=== PATIENT | female | born 1960 | race American Indian/Alaskan Native ===

== ENCOUNTER 2018-01-01 14:53 | Inpatient (IN) | payer MEDICAID ==
[2018-01-01 15:12] VITALS: BMI 21.9
[2018-01-01 17:04] LABS: EOS # 0.1 K/uL (0.0-0.7); EOS % 2.3 % (0.0-4.0); HEMOGLOBIN 13.4 g/dL (11.0-16.0); LYMPH # 2.4 K/uL (1.0-4.3); MEAN CELL VOLUME 91.6 fL (81.0-99.0); MEAN CORPUSCULAR HEMOGLOBIN 30.7 pg (27.0-31.0); MEAN CORPUSCULAR HGB CONC 33.5 g/dL (33.0-37.0); MEAN PLATELET VOLUME 8.5 fL (7.2-11.7); MONO # 0.3 K/uL (0.0-0.8); MONO % 6.6 % (0.0-10.0); NEUT # 1.1 K/uL (1.8-7.0); NEUT % 28.1 % (50.0-75.0); NRBC % 0.2 % (0.0-2.0); RBC 4.35 Mil/uL (3.80-5.20); RED CELL DISTRIBUTION WIDTH 12.6 % (11.5-14.5); WHITE BLOOD COUNT 3.9 K/uL (4.8-10.8)
[2018-01-01 17:16] LABS: URINE BACTERIA RARE (<OCC); URINE BILIRUBIN NEGATIVE (NEGATIVE); URINE BLOOD 1+ (NEGATIVE); URINE CLARITY Clear (Clear); URINE COLOR Yellow (YELLOW); URINE GLUCOSE (UA) NORMAL (Normal); URINE LEUKOCYTE ESTERASE NEG Leu/uL (Negative); URINE PROTEIN NEGATIVE (NEGATIVE); URINE UROBILINOGEN NORMAL mg/dL (0.2-1.0)
[2018-01-01 17:17] LABS: ALB/GLOB RATIO 1.5 (1.0-2.1); ALBUMIN 4.3 g/dL (3.5-5.0); ALT/SGPT 24 U/L (9-52); AST/SGOT 27 U/L (14-36); BLOOD UREA NITROGEN 14 mg/dL (7-17); CALCIUM 9.6 mg/dl (8.6-10.4); GFR NON-AFRICAN AMERICAN > 60
[2018-01-01 17:19] LABS: BARBITURATES, UR NEGATIVE (NEGATIVE); BENZODIAZEPINES, UR NEGATIVE (NEGATIVE); PHENCYCLIDINE, UR NEGATIVE (NEGATIVE)
[2018-01-01 17:21] LABS: OPIATES, UR POSITIVE (NEGATIVE)
--- NOTE | 2018-01-01 17:35 | C.PDOC ---
History Of Present Illness 57 year old female presents to the emergency department for substance abuse. Patient admits to using heroine, crack-cocaine, but denies suicidal and homicidal ideation. Patient has not used any other drugs or alcohol. Time Seen by Provider: 01/01/18 15:50 Chief Complaint (Nursing): Substance Abuse History Per: Patient History/Exam Limitations: no limitations Onset/Duration Of Symptoms: Hrs Current Symptoms Are (Timing): Still Present Suicide/Self Injury Attempted (Context): None Modifying Factor(s): Cocaine, Crack, Other (heroin) Associated Symptoms: denies: Suicidal Thoughts, Suicidal Plan Past Medical History Reviewed: Historical Data, Nursing Documentation, Vital Signs Vital Signs: Last Vital Signs Temp 98.7 F 01/01/18 15:12 Pulse 87 01/01/18 15:12 Resp 20 01/01/18 15:12 BP 166/103 H 01/01/18 15:12 Pulse Ox 97 01/01/18 15:12 - Medical History PMH: Back Problems, Cardia Arrhythmia, HTN Surgical History: No Surg Hx Family History: States: No Known Family Hx - Social History Hx Alcohol Use: Yes Hx Substance Use: Yes - Immunization History Hx Tetanus Toxoid Vaccination: No Hx Influenza Vaccination: No Hx Pneumococcal Vaccination: No Review Of Systems Constitutional: Negative for: Fever, Chills Cardiovascular: Negative for: Chest Pain Respiratory: Negative for: Cough, Shortness of Breath Gastrointestinal: Negative for: Nausea, Vomiting, Abdominal Pain, Diarrhea Physical Exam - Physical Exam Appears: Non-toxic, No Acute Distress Skin: Warm, Diaphoretic Head: Atraumatic, Normacephalic Eye(s): bilateral: Normal Inspection Oral Mucosa: Moist Neck: Normal, Supple Chest: Symmetrical, No Tenderness Cardiovascular: Rhythm Regular, No Murmur Respiratory: Normal Breath Sounds, No Rales, No Rhonchi, No Wheezing Gastrointestinal/Abdominal: Normal Exam, Soft, No Tenderness, No Guarding, No Rebound Extremity: Normal ROM Neurological/Psych: Oriented x3, Normal Speech, Normal Cognition ED Course And Treatment - Laboratory Results Result Diagrams: 01/01/18 17:00 01/01/18 17:00 ECG: Interpreted By Me ECG Rhythm: Sinus Rhythm Interpretation Of ECG: normal axis, normal intervals, no ST/T changes O2 Sat by Pulse Oximetry: 97 (RA) Pulse Ox Interpretation: Normal Medical Decision Making Medical Decision Making: Plan: Alcohol Serum CMP Drug Screen Magnesium Phosphorus CBC Urinalysis Patient medically cleared and assessed by crisis. Admitted to detox under Dr. Angeles. Disposition - Disposition Disposition: HOSPITALIZED Disposition Time: 20:09 Condition: FAIR - Clinical Impression Clinical Impression: Opiate abuse, continuous - Scribe Statement The provider has reviewed the documentation as recorded by the Scribe (Francisco Wyatt) Provider Attestation: All medical record entries made by the Scribe were at my direction and pe rsonally dictated by me. I have reviewed the chart and agree that the record accurately reflects my personal performance of the history, physical exam, medical decision making, and the department course for this patient. I have also personally directed, reviewed, and agree with the discharge instructions and disposition.
--- NOTE | 2018-01-01 20:27 | PCM.BM ---
Treatment Plan Problems - Problems identified on initial assessmt potiential for opiate withdrawal Date Initiated: 01/01/18 Time Initiated: 20:27 Assessment reference: NA Status: Active Treatment assets and liabiliti Patient Assests: ADL independent Patient Liabilities: substance abuse, medical problems - Milieu Protocol Maintain good personal hygiene: daily Encourage regular showers, daily Remind patient to perform daily oral care, daily Assist patient to perform ADL's Maintain personal safety: every shift Educate patient to report safety concerns to staff, every shift Monitor environment for contraband/sharps Medication safety: Monitor for expected outcome, potential side effects: every shift, Assess barriers to learning: every shift, Assess readiness for medication education: every shift
--- NOTE | 2018-01-02 23:17 | PCM.PSYCH ---
Initial Psychiatric Evaluation - Initial Psychiatric Evaluation Legal Status: Capacity Chief Complaint (in patient's own words): I WANT TO GET HELP. I DO NOT FEEL GOOD Patient's Reaction to Hospitalization: I'M GLAD I COULD BE ADMITTED TO DETOX History of Present Illness and Precipitating Events: PT IS A 57 YEAR OLD DOMICILED DISABLE SINGLE FEMALE WHO PRESENTED TO [facility] FOR DETOX FROM HEROIN AND CRACK/COCAINE PT STARTED USING HEROIN WHEN SHE WAS IN HER LATE TEENS. AT HER WORST SHE WOULD USE ABOUT A BUNDLE A DAY BUT CURRENTLY SHE USES ABOUT 4 BAGS A DAY. PT SNIFFS SHE DOSES NOT INJECT. PT HAD BEEN AT A [facility] IN [place] BUT SHE LEFT HERE IN AUGUST. PT USES 4-5 DIME BAGS A DAY OF CRACK/COCAINE. PT STATES SHE DRINKS ALCOHOL SOCIALLY AND USES CANNABIS OCCASIONALLY. SHE DENIES USE AND ABUSE OF ANY OTHER SUBSTANCE LICIT OR ILLICIT. PT HAS BEEN IN MORE THAN 10 DETOXES AND SEVERAL REHABS. ONE OF THE REHABS WAS FOR NINE MONTHS AND THE OTHERS WERE SHORT TERM.PTSTATES TAHT HER MATERNAL UNCLE HAD SCHIZOPHRENIA AND FATHER WAS AN ALCOHOLIC. PT HAS NO KNOWN LEGAL HISTORY AND NO HISTORYPT HAS NEDVER BEDEN IN A PSYCHIATRIC FACILITY BUT WAS PRESCRIBED KLONOPIN AT THE [facility] CLIN[facility]/ PT DENIES SI/HI. PT GRADUATED HIGH SCHOOL Current Medications: Active Medications Generic Name Dose Route Start Last Admin Trade Name Freq PRN Reason Stop Dose Admin Ibuprofen 600 mg 01/02/18 11:27 01/02/18 18:26 Motrin Tab PO 600 mg Q6 PRN Administration Pain, moderate (4-7) Nicotine 1 patch 01/02/18 11:30 01/02/18 12:19 Nicoderm Cq TD 1 patch DAILY MYRIAM Administration Trazodone HCl 50 mg 01/01/18 22:00 01/02/18 21:05 Desyrel PO 50 mg HS PRN Administration insomnia Past Psychiatric History - Past Psychiatric History Prior Professional Help: SEE HPI Pertinent Medical Hx (Current Medical&Sleep Prob, Allergies): Allergies Allergy/AdvReac Type Severity Reaction Status Date / Time No Known Allergies Allergy Verified 01/01/18 15:10 hydroCHLOROthiazide [Microzide] 12.5 mg PO DAILY 01/01/18 Review of Systems - Constitutional Constitutional: Chills, Sweats, Malaise - EENT Eyes: UNREMARKABLE Ears: UNREMARKABLE Nose/Mouth/Throat: UNREMARKABLE - Breasts Breasts: UNREMARKABLE - Cardiovascular Cardiovascular: UNREMARKABLE - Respiratory Respiratory: UNREMARKABLE - Gastrointestinal Gastrointestinal: Abdominal Pain - Genitourinary Genitourinary: UNREMARKABLE - Reproductive: Female Reproductive:Female: UNREMARKABLE - Menstruation Menstruation: UNREMARKABLE - Musculoskeletal Musculoskeletal: Arthralgias, Back Pain, Muscle Weakness, Myalgias - Integumentary Integumentary: UNREMARKABLE - Neurological Neurological: UNREMARKABLE - Psychiatric Psychiatric: Anxiety - Endocrine Endocrine: UNREMARKABLE - Hematologic/Lymphatic Hematologic: UNREMARKABLE Mental Status Examination - Personal Presentation Personal Presentation: Looks older than stated age - Affect Affect: Blunted - Motor Activity Motor Activity: Calm - Reliability in Providing Information Reliability in Providing Information: Good - Speech Speech: Organized - Mood Mood: Anxious - Formal Thought Process Formal Thought Process: No Impairment - Obsessions/Compulsions Obsessions: None Compulsions: None - Cognitive Functions Orientation: Person, Place, Situation, Time Sensorium: Alert Attention/Concentration: Attentive Abstract Thinking: As evidence by abstract perception of proverbs Estimate of Intelligence: Average Judgement: Intact, as evidence by: Good judgement Memory: Recent intact, as evidence by: Ability to recall events of the day, Remote intact, as evidenced by: Ability to recall historical events - Risk Risk: Withdrawal - Strength & Assets Inventory Strength & Assets Inventory: Family support, Life experience - Limitations Limitations: Other DSM 5 DX - DSM 5 DSM 5 Diagnosis: OPIOID WITHDRAWAL: METHADONE TAPER, CBT [facility] GROUP [facility]IEU AND RECREATIONAL THERAPY SUPPORTIVE PSYCHOTHERAPY OPIOID USE DISORDER: MILD CBT [facility] GROUP MILIEU AND RECREATIONAL THERAPY SUPPORTIVE PSYCHOTHERAPY PSYCHOEDUCATION COCAINE USE DISORDER: NH CBT PSYCHOEDUCATION SUPPORTIVE PSYCHOTHERAPY - Recommended/Plan of Treatment Treatment Recommendations and Plan of Treatment: SEE ABOVE Projected ELOS: 5 DAYS Prognosis: GOOD WITH TREATMENT Discharge Plan and Discharge Criteria: NO ACUTE SIGNS OF WITHDRAWAL - Smoking Cessation Smoking Cessation Initiated: No
--- NOTE | 2018-01-03 13:13 | PCM.PYCHPN ---
Psychiatric Progress Note - Psychiatric Progress Note Patient seen today, length of contact: 16min Patient Chief Complaint: "I'm not well" Problems Identified/Issues Discussed: The pt is seen, chart reviewed, case discussed with staff. The pt is compliant with medications and reports no side-effects. Symptoms are improving but needs more time to stabilize. Pt attends groups and activities. Support given, psycho-education provided. After care discussed. Medication Change: Yes (detox changes daily) Medical Record Reviewed: Yes Mental Status Examination - Cognitive Function Orientation: Person, Place, Situation, Time Memory: Intact Attention: WNL Concentration: Poor Association: WNL Fund of Knowledge: WNL - Mood Mood: Anxious - Affect Affect: Constricted - Speech Speech: Appropriate - Formal Thought Process Formal Thought Process: No Impairment - Suicidal Ideation Suicidal Ideation: No - Homicidal Ideation Homicidal Ideation: No Goal/Treatment Plan - Goal/Treatment Plan Need for Continued Stay: Discharge may exacerbated symptoms, Severe functional impairment Progress Toward Problem(s) and Goals/Treatment Plan: Continue medications Support and psychoeducation daily Attend groups and activities daily After care planning by counselors GA and CBT Consider rehab and MAt Estimated Date of D/C: 01/06/18
--- NOTE | 2018-01-03 21:23 | CARD ---
APPROVED REPORT Date of service: 01/01/2018 EKG Measurement Heart [id number] <Conclusion> Normal sinus rhythm Poor R wave progression. ST-T changes in inferior leads. Abnormal ECG
--- NOTE | 2018-01-04 12:49 | PCM.PYCHPN ---
Psychiatric Progress Note - Psychiatric Progress Note Patient seen today, length of contact: 16 min Patient Chief Complaint: "I'm better" Problems Identified/Issues Discussed: The pt is seen, chart reviewed, case discussed with staff. Support and psychoeducation given, CBT and SD used briefly No new symptoms reported, improving slowly and needs more time No SEs from medications, risks discussed. After care discussed Medication Change: Yes (detox changes daily) Medical Record Reviewed: Yes Mental Status Examination - Cognitive Function Orientation: Person, Place, Situation, Time Memory: Intact Attention: WNL Concentration: Poor Association: WNL Fund of Knowledge: WNL - Mood Mood: Anxious - Affect Affect: Constricted - Speech Speech: Appropriate - Formal Thought Process Formal Thought Process: No Impairment - Suicidal Ideation Suicidal Ideation: No - Homicidal Ideation Homicidal Ideation: No Goal/Treatment Plan - Goal/Treatment Plan Need for Continued Stay: Discharge may exacerbated symptoms, Severe functional impairment Progress Toward Problem(s) and Goals/Treatment Plan: Continue medications Support and psychoeducation daily Attend groups and activities daily After care planning by counselors SD and CBT Consider rehab and MAt Estimated Date of D/C: 01/06/18
[2018-01-04 13:57] VITALS: RESP 18
--- NOTE | 2018-01-05 08:18 | PCM.PYCHDC ---
Mental Status Examination - Mental Status Examination Orientation: Person, Place, Situation, Time Memory: Intact Mood: Anxious Affect: Constricted Speech: Appropriate Attention: WNL Concentration: WNL Association: WNL Fund of Knowledge: WNL Formal Thought Process: No Impairment Suicidal Ideation: No Current Homicidal Ideation?: No Discharge Summary - Discharge Note Reason for Hospitalization: Opioid detox Consultations:: List each consultation separately and include: 1. Reason for request. 2. Findings. 3. Follow-up Summary of Hospital Course include:: 1. Description of specific treatment plan utilized for patients during their course of treatmen. 2. Summarize the time- course for resolution of acute symptoms and/or regressed behaviors. 3. Describe issues identified and worked on during hospitalization. 4. Describe medication utilized. 5. Describe medical problems identified and treated. 6. Reassessment of suicide risk Summary of Hospital Course: The pt was admitted and started on treatment with psychotherapy, support, psychoeducation and medications. AK and CBT used. The pt attended groups and activities, as well as milieu therapy. All the risks and benefits of medications are discussed and the patient understood and agreed. The pt improved with the treatments provided. After care discussed with the patient. She decided to attend [facility] - Final Diagnosis (DSM 5) Condition upon Discharge: IMPROVED DSM 5: Opioid withdrawal Opioid use d/o - severe Cocaine use d/o - severe Disposition: HOME/ ROUTINE Follow-up Treatment Plan: Continue below medications after discharge. Follow after care plan as discussed. Use relapse prevention skills Return to ER or call 911 if suicidal, homicidal or symptoms relapse. Stay away from stress, alcohol and drugs. See primary doctor regularly and get labs. Prescriptions/Medication Reconciliation: traZODone [Desyrel] 50 mg PO HS PRN #30 tab PRN Reason: insomnia
[2018-01-05 10:11] VITALS: BP 140/83; PULSE 63; TEMP 98.6; O2SAT 99
== END 2018-01-05 09:15 | disposition home or self-care (01) | DRG 772 ==
LOC: C.ER 14:53 → C.7D 20:08
PROVIDERS: ADMIT Psychiatry & Neurology Psychiatry; ATTEND Psychiatry & Neurology Psychiatry
PROC: HZ2ZZZZ Detoxification Services for Substance Abuse Treatment (ICD-10-PCS; principal; 2018-01-01)
PROC: HZ52ZZZ Individual Psychotherapy for Substance Abuse Treatment, Cognitive-Behavioral (ICD-10-PCS; 2018-01-01)
PROC: HZ59ZZZ Individual Psychotherapy for Substance Abuse Treatment, Supportive (ICD-10-PCS; 2018-01-01)
PROC: HZ56ZZZ Individual Psychotherapy for Substance Abuse Treatment, Psychoeducation (ICD-10-PCS; 2018-01-01)
PROC: HZ42ZZZ Group Counseling for Substance Abuse Treatment, Cognitive-Behavioral (ICD-10-PCS; 2018-01-01)
PROC: HZ46ZZZ Group Counseling for Substance Abuse Treatment, Psychoeducation (ICD-10-PCS; 2018-01-01)
PROC: GZHZZZZ Group Psychotherapy (ICD-10-PCS; 2018-01-01)
PROC: GZ58ZZZ Individual Psychotherapy, Cognitive-Behavioral (ICD-10-PCS; 2018-01-01)
PROC: GZ56ZZZ Individual Psychotherapy, Supportive (ICD-10-PCS; 2018-01-01)
DX: F11.23 Opioid dependence with withdrawal (principal); I10 Essential (primary) hypertension; F14.10 Cocaine abuse, uncomplicated; F12.90 Cannabis use, unspecified, uncomplicated; G47.00 Insomnia, unspecified; Z81.1 Family history of alcohol abuse and dependence; Z81.8 Family history of other mental and behavioral disorders

== ENCOUNTER 2018-05-06 11:48 | Inpatient (IN) | payer MEDICAID ==
[2018-05-06 11:53] VITALS: BMI 20.1
[2018-05-06 12:23] LABS: BASO % 1.2 % (0.0-2.0); EOS # 0.1 K/uL (0.0-0.7); EOS % 2.2 % (0.0-4.0); HEMOGLOBIN 12.9 g/dL (11.0-16.0); LYMPH % 55.7 % (20.0-40.0); MEAN CORPUSCULAR HEMOGLOBIN 30.9 pg (27.0-31.0); MEAN CORPUSCULAR HGB CONC 32.4 g/dL (33.0-37.0); MEAN PLATELET VOLUME 8.5 fL (7.2-11.7); MONO # 0.4 K/uL (0.0-0.8); MONO % 9.7 % (0.0-10.0); NEUT # 1.1 K/uL (1.8-7.0); NEUT % 31.2 % (50.0-75.0); NRBC % 0.2 % (0.0-2.0); RBC 4.16 Mil/uL (3.80-5.20); RED CELL DISTRIBUTION WIDTH 12.9 % (11.5-14.5); WHITE BLOOD COUNT 3.7 K/uL (4.8-10.8)
[2018-05-06 12:27] LABS: MEAN CELL VOLUME 95.4 fL (81.0-99.0)
[2018-05-06 12:36] LABS: SQUAMOUS EPITHIAL < 1 /hpf (0-5); URINE AMORPHOUS SEDIMENT RARE /ul (<OCC); URINE BILIRUBIN NEGATIVE (NEGATIVE); URINE BLOOD NEGATIVE (NEGATIVE); URINE CLARITY Hazy (Clear); URINE COLOR Yellow (YELLOW); URINE GLUCOSE (UA) NORMAL (Normal); URINE LEUKOCYTE ESTERASE NEG Leu/uL (Negative); URINE PROTEIN NEGATIVE (NEGATIVE); URINE UROBILINOGEN NORMAL mg/dL (0.2-1.0)
[2018-05-06 12:40] LABS: ALB/GLOB RATIO 1.6 (1.0-2.1); ALBUMIN 4.5 g/dL (3.5-5.0); ALT/SGPT 23 U/L (9-52); AST/SGOT 34 U/L (14-36); BLOOD UREA NITROGEN 12 mg/dL (7-17); CALCIUM 9.3 mg/dl (8.6-10.4); GFR NON-AFRICAN AMERICAN > 60
[2018-05-06 12:55] LABS: BARBITURATES, UR NEGATIVE (NEGATIVE); BENZODIAZEPINES, UR NEGATIVE (NEGATIVE); PHENCYCLIDINE, UR NEGATIVE (NEGATIVE)
[2018-05-06 13:31] LABS: OPIATES, UR POSITIVE (NEGATIVE)
--- NOTE | 2018-05-06 13:36 | C.PDOC ---
History Of Present Illness 58 y/o female pt presents to the ER requesting detox for heroin and cocaine. Pt report she takes 2-3 bags pf heroin daily nasally. Pt also notes she occasionally uses cocaine, but smokes. Pt currently has no other complaints at this time. Time Seen by Provider: 05/06/18 11:58 Chief Complaint (Nursing): Substance Abuse History Per: Patient History/Exam Limitations: no limitations Onset/Duration Of Symptoms: Days Current Symptoms Are (Timing): Still Present Modifying Factor(s): Cocaine, Other (heroin) Past Medical History Reviewed: Historical Data, Nursing Documentation, Vital Signs Vital Signs: Last Vital Signs Temp 97.9 F 05/06/18 11:54 Pulse 77 05/06/18 11:54 Resp 18 05/06/18 11:54 BP 151/90 H 05/06/18 11:54 Pulse Ox 99 05/06/18 11:54 - Medical History PMH: Back Problems, Cardia Arrhythmia, HTN - [facility] Procedures DETOXIFICATION SERVICES FOR SUBSTANCE ABUSE TREATMENT (01/01/18) GROUP HEAD LOFT WORKER FOR SUBSTANCE ABUSE TREATMENT, PSYCHOEDUCATION (01/01/18) GROUP HEAD LOFT WORKER FOR SUBSTANCE ABUSE, COGNITIVE BEHAVIORAL (01/01/18) GROUP PSYCHOTHERAPY (01/01/18) INDIV PSYCHOTHERAPY FOR SUBSTANCE ABUSE TREATMENT, SUPPORT (01/01/18) INDIV PSYCHOTHERAPY FOR SUBSTANCE ABUSE, COGNITIV BEHAVIORAL (01/01/18) INDIV PSYCHOTHERAPY FOR SUBSTANCE ABUSE, PSYCHOEDUCATION (01/01/18) INDIVIDUAL PSYCHOTHERAPY, COGNITIVE-BEHAVIORAL (01/01/18) INDIVIDUAL PSYCHOTHERAPY, SUPPORTIVE (01/01/18) Family History: States: No Known Family Hx - Social History Hx Alcohol Use: Yes Hx Substance Use: Yes (heroin, cocaine) - Immunization History Hx Tetanus Toxoid Vaccination: No Hx Influenza Vaccination: Yes Hx Pneumococcal Vaccination: Yes Review Of Systems Except As Marked, All Systems Reviewed And Found Negative. Constitutional: Positive for: Other (detox for heroin and cocaine ) Cardiovascular: Negative for: Chest Pain Respiratory: Negative for: Cough Gastrointestinal: Negative for: Nausea, Vomiting Genitourinary: Negative for: Dysuria Musculoskeletal: Negative for: Neck Pain Skin: Negative for: Rash Neurological: Negative for: Weakness Psych: Negative for: Depression, Suicidal ideation, Other (HI) Physical Exam - Physical Exam Appears: Non-toxic, No Acute Distress Skin: Warm, Dry Head: Normacephalic Eye(s): bilateral: Normal Inspection Oral Mucosa: Moist Throat: Normal Neck: Normal ROM, Supple Cardiovascular: Rhythm Regular Respiratory: Normal Breath Sounds Extremity: Normal ROM (x4) Neurological/Psych: Oriented x3, Normal Speech ED Course And Treatment - Laboratory Results Result Diagrams: 05/06/18 12:18 05/06/18 12:18 Lab Results: Total Bilirubin 0.2 mg/dL (0.2-1.3) 05/06/18 12:18 AST 34 U/L (14-36) 05/06/18 12:18 ALT 23 U/L (9-52) 05/06/18 12:18 Alkaline Phosphatase 68 U/L (38-126) 05/06/18 12:18 Total Protein 7.2 g/dL (6.3-8.3) 05/06/18 12:18 Albumin 4.5 g/dL (3.5-5.0) 05/06/18 12:18 Globulin 2.7 gm/dL (2.2-3.9) 05/06/18 12:18 Albumin/Globulin Ratio 1.6 (1.0-2.1) 05/06/18 12:18 Urine Color Yellow (YELLOW) 05/06/18 12:18 Urine Clarity Hazy (Clear) 05/06/18 12:18 Urine pH 7.0 (5.0-8.0) 05/06/18 12:18 Ur Specific [place] 1.013 (1.003-1.030) 05/06/18 12:18 Urine Protein Negative mg/dL (NEGATIVE) 05/06/18 12:18 Urine Glucose (UA) Normal mg/dL (Normal) 05/06/18 12:18 Urine Ketones Negative mg/dL (NEGATIVE) 05/06/18 12:18 Urine Blood Negative (NEGATIVE) 05/06/18 12:18 Urine Nitrate Negative (NEGATIVE) 05/06/18 12:18 Urine Bilirubin Negative (NEGATIVE) 05/06/18 12:18 Urine Urobilinogen Normal mg/dL (0.2-1.0) 05/06/18 12:18 Ur Leukocyte Esterase Neg Levon/uL (Negative) 05/06/18 12:18 Urine RBC (Auto) 1 /hpf (0-3) 05/06/18 12:18 Ur Squamous Epith Cells < 1 /hpf (0-5) 05/06/18 12:18 Amorphous Sediment Rare /ul (<OCC) H 05/06/18 12:18 O2 Sat by Pulse Oximetry: 99 (RA) Pulse Ox Interpretation: Normal Medical Decision Making Medical Decision Making: Plans: -- chem labs -- blood work Patient is medically cleared. Disposition - Disposition Disposition: HOSPITALIZED Disposition Time: 13:00 Condition: STABLE - Clinical Impression Clinical Impression: Drug dependence - Scribe Statement The provider has reviewed the documentation as recorded by the Marilee Rebolledo Do Provider Attestation: All medical record entries made by the Scribe were at my direction and personally dictated by me. I have reviewed the chart and agree that the record accurately reflects my personal performance of the history, physical exam, medical decision making, and the department course for this patient. I have also personally directed, reviewed, and agree with the discharge instructions and disposition.
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
[2018-05-06] MEDS ORDERED: Aluminum Hydroxide/Magnesium Hydroxide Susp (30 mL) PO PRN (13:44)
[2018-05-06 18:12] VITALS: RESP 18
--- NOTE | 2018-05-07 08:13 | PCM.PYCHPN ---
Psychiatric Progress Note - Psychiatric Progress Note Patient seen today, length of contact: 15 min Patient Chief Complaint: I am still withdrawing. Problems Identified/Issues Discussed: She was seen and evaluated, chart reviewed and discussed with staff. Patient reports some withdrawal symptoms including anxiety, headaches and cramps. She reports anxiety but denies any suicidal ideation or homicidal ideation. Sh is taking medication but denies any side effects. Symptoms are improving gradually but she needs to stay longer for this evaluation. Supportive therapy was given. Medication Change: Yes Medical Record Reviewed: Yes Mental Status Examination - Cognitive Function Orientation: Person, Place, Situation, Time Memory: Intact Attention: WNL Concentration: Poor Association: WNL Fund of Knowledge: Poor - Mood Mood: Anxious - Affect Affect: Constricted - Speech Speech: Soft - Formal Thought Process Formal Thought Process: No Impairment - Suicidal Ideation Suicidal Ideation: No - Homicidal Ideation Homicidal Ideation: No Goal/Treatment Plan - Goal/Treatment Plan Need for Continued Stay: Remain at risks for inpatient hospitalization Progress Toward Problem(s) and Goals/Treatment Plan: Opioid withdrawal Opioid use disorder, severe Cocaine use disorder, severe Major Depressive disorder, recurrent, severe, w/o psychosis Generalized Anxiety disorder Methadone taper Lexapro for depression Gabapentin for augmentation As needed medications Continue home meds All risks, benefits and alternatives of the meds discussed, and the pt agreed and understood. Attend groups and activities Supportive therapy and psychoeducation SD for abstinence CBT for relapse prevention Encourage MAT Refer to rehab or IOP, and self-help groups Teach healthy lifestyle methods, i.e. diet, exercise, meditation Smoking cessation with SD Nicotine patch if needed Suicide preventions and check - CBT, support - Smoking Cessation Smoking Cessation Initiated: No
--- NOTE | 2018-05-08 16:25 | PCM.BM ---
<Ana Patel - Last Filed: 05/08/18 16:24> Treatment Plan Problems - Problems identified on initial assessmt Denial Date Initiated: 05/08/18 Time Initiated: 16:24 Assessment reference: NA Status: Active Defensive Coping Date Initiated: 05/08/18 Time Initiated: 16:24 Assessment reference: NA Status: Active Low Motivation to Change Date Initiated: 05/08/18 Time Initiated: 16:24 Assessment reference: NA Treatment assets and liabiliti Patient Assests: ADL independent, negotiates basic needs, cognitively intact Patient Liabilities: substance abuse - Milieu Protocol Maintain good personal hygiene: daily Encourage regular showers, daily Remind patient to perform daily oral care, daily Assist patient to perform ADL's Conduct patient checks and document Observation sheet: Q15 minutes Maintain personal safety: every shift Educate patient to report safety concerns to staff, every shift Monitor environment for contraband/sharps Medication safety: Monitor for expected outcome, potential side effects: every shift, Assess barriers to learning: every shift, Assess readiness for medication education: every shift Milieu Narrative: Methadone taper Lexapro for depression Gabapentin for augmentation As needed medications Continue home meds All risks, benefits and alternatives of the meds discussed, and the pt agreed and understood. Attend groups and activities Supportive therapy and psychoeducation NV for abstinence CBT for relapse prevention Encourage MAT Refer to rehab or IOP, and self-help groups Teach healthy lifestyle methods, i.e. diet, exercise, meditation Smoking cessation with NV Nicotine patch if needed Suicide preventions and check - CBT, support 34 min Discharge/Continuing Care - Treatment Team Participation Patient/Family/SO Statement: Methadone taper Lexapro for depression Gabapentin for augmentation As needed medications Continue home meds All risks, benefits and alternatives of the meds discussed, and the pt agreed and understood. Attend groups and activities Supportive therapy and psychoeducation NV for abstinence CBT for relapse prevention Encourage MAT Refer to rehab or IOP, and self-help groups Teach healthy lifestyle methods, i.e. diet, exercise, meditation Smoking cessation with NV Nicotine patch if needed Suicide preventions and check - CBT, support 34 min <Anupam Patel - Last Filed: 05/10/18 13:14> - Diagnosis (1) Opiate abuse, continuous Status: Acute Interventions: 05/09/18 13:13 * Assess 7x/week regarding severity of withdrawal * Educate regarding risks, benefits, side effects and alternatives of medications * Use Motivational Interviewing for abstinence * Use CBT for relapse prevention * Medication management for withdrawal symptoms * Encourage medication assisted treatment *
[2018-05-08] MEDS ORDERED: Vitamins A & D Oint UD Foilpak TOP PRN (21:35)
--- NOTE | 2018-05-09 13:12 | PCM.PYCHPN ---
Psychiatric Progress Note - Psychiatric Progress Note Patient seen today, length of contact: 16 min Patient Chief Complaint: "I'm feeling sick" Problems Identified/Issues Discussed: The pt is seen, chart reviewed, case discussed with staff. The pt is compliant with medications and reports no side-effects. Symptoms are improving but needs more time to stabilize. Pt attends groups and activities. Support given, psycho-education provided. After care discussed. Medication Change: Yes (detox changes daily) Medical Record Reviewed: Yes Mental Status Examination - Cognitive Function Orientation: Person, Place, Situation, Time Memory: Intact Attention: WNL Concentration: Poor Association: WNL Fund of Knowledge: Poor - Mood Mood: Anxious - Affect Affect: Constricted - Speech Speech: Soft - Formal Thought Process Formal Thought Process: No Impairment - Suicidal Ideation Suicidal Ideation: No - Homicidal Ideation Homicidal Ideation: No Goal/Treatment Plan - Goal/Treatment Plan Need for Continued Stay: Severe depression anxiety, Discharge may exacerbated symptoms, Severe functional impairment Progress Toward Problem(s) and Goals/Treatment Plan: Methadone taper Lexapro for depression Gabapentin for augmentation As needed medications Continue home meds All risks, benefits and alternatives of the meds discussed, and the pt agreed and understood. Attend groups and activities Supportive therapy and psychoeducation LA for abstinence CBT for relapse prevention Encourage MAT Refer to rehab or IOP, and self-help groups Teach healthy lifestyle methods, i.e. diet, exercise, meditation Smoking cessation with LA Nicotine patch if needed Suicide preventions and check - CBT, support HIV and hep C testing bc of high risk bnv
[2018-05-09 22:11] VITALS: O2SAT 99
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
[2018-05-10 11:59] VITALS: BP 128/83; PULSE 68; TEMP 98.7
== END 2018-05-10 10:20 | disposition home or self-care (01) | DRG 430 ==
LOC: C.ER 11:48 → C.7D 13:20
PROVIDERS: ADMIT Psychiatry & Neurology Psychiatry; ATTEND Psychiatry & Neurology Psychiatry
DX: F33.2 Major depressive disorder, recurrent severe without psychotic features (principal); F11.23 Opioid dependence with withdrawal; F14.20 Cocaine dependence, uncomplicated; F12.90 Cannabis use, unspecified, uncomplicated; I10 Essential (primary) hypertension; F41.9 Anxiety disorder, unspecified